=== PATIENT | male | born 1970 | race Caucasian/White ===

== ENCOUNTER 2018-12-07 10:21 | Emergency (ER) | payer SELFPAY ==
[2018-12-07] MEDS ORDERED: NITROGLYCERIN 0.4 MG TAB.SUBL SL PRN (10:39)
[2018-12-07] MEDS ORDERED: ASPIRIN 81 MG CHEW TAB PO ONE (10:39)
--- NOTE | 2018-12-07 10:40 | ED Physician Documentation ---
General Adult - HISTORIAN Historian: patient - HPI Stated Complaint: chest pain, n/v/sob Chief Complaint: General Adult Onset: hours Timing: still present Severity: moderate Further Comments: yes (Pt is a 48 yo male with pain in his chest. He makes and up and down motion over his esophagus when he describes the pain. Pain was 10/10 at it's worst, now is 7/10. Pt has no hx heart dz. Pt does not recall hx GERD.) - ROS CONST: no problems EYES/ENT: none CVS/RESP: chest pain GI/: none MS/SKIN/LYMPH: none - PAST HX Past History: asthma Allergies/Adverse Reactions: Allergies Allergy/AdvReac Type Severity Reaction Status Date / Time ketorolac [From Toradol] Allergy Verified 12/07/18 11:05 morphine Allergy Verified 12/07/18 11:05 Penicillins Allergy Verified 12/07/18 11:05 Home Medications: Ambulatory Orders Medication Instructions Recorded NK 12/07/18 - SOCIAL HX Smoking History: cigarettes - FAMILY HX Family History: No - REVIEWED ASSESSMENTS Nursing Assessment Reviewed: Yes Vitals Reviewed: Yes Progress - Progress Progress: ASA 325 mg po Nitro 0.4 mg no change Dilaudid 1 mg IV Zofran 4 mg IV D dimer wnl GI cocktail Protonix 40 mg IV improved after Protonix May try Pepcid/Zantac or Nexium OTC. - EKG/XRAY/CT EKG: rhythm (sinus tachycardia, PO=824.) XRAY: chest (neg) General Adult Physical Exam - PHYSICAL EXAM GENERAL APPEARANCE: moderate distress (anxious) EENT: eye inspection normal, pharynx normal NECK: normal inspection, supple RESPIRATORY: no resp distress, chest non-tender, breath sounds normal CVS: tachycardia ABDOMEN: soft, no organomegaly, normal bowel sounds BACK: normal inspection, no CVA tenderness SKIN: warm/dry, normal color EXTREMITIES: non-tender, normal range of motion, no evidence of injury NEURO: oriented X3, motor nml, sensation nml Discharge Clincal Impression: probable GERD Referrals: Primary Doctor,No [Primary Care Provider] - Condition: Stable Disposition: 01 HOME, SELF-CARE Decision to Admit: NO Decision Time: 13:25
[2018-12-07] MEDS ORDERED: ASPIRIN 81 MG CHEW TAB ONE (10:43)
[2018-12-07 11:03] LABS: BASOPHILS % 0.5 (0.0-1.5); EOSINOPHILS % 4.7 % (0.0-6.8); MEAN CORPUSCULAR HEMOGLOBIN 31.3 pg (28.0-34.0); MONOCYTES % 7.4 % (0.0-11.0); NEUTROPHILS # 5.8 # k/uL (1.4-7.7)
[2018-12-07] MEDS ORDERED: HYDROmorphone HCL/PF 1 MG/ML VIAL IVP ONE (11:19)
[2018-12-07] MEDS ORDERED: ONDANSETRON HCL/PF 4 MG/ 2ML VIAL IVP ONE (11:19)
[2018-12-07] MEDS ORDERED: HYDROmorphone HCL/PF 2 MG/ML VIAL ONE (11:22)
[2018-12-07 11:47] LABS: eGFR (Non-African) > 60
[2018-12-07] MEDS ORDERED: MAG HYDROX/ALUMINUM HYD/SIMETH 30 ML, Lidocaine 2%Visc 15ml 20 MG, PHENOBARB-HYOSCYAM-A... PO ONE ×3 (12:26)
[2018-12-07] MEDS ORDERED: MAG HYDROX/ALUMINUM HYD/SIMETH 30 ML UDC PO ONE (12:47)
[2018-12-07] MEDS ORDERED: LIDOCAINE HCL 2% VISC. ORAL 300MG/15ML UDC ONE (12:47)
[2018-12-07] MEDS ORDERED: PANTOPRAZOLE SODIUM 40 MG in 0.9 % SODIUM CHLORIDE 50 ML IV ONE (13:00)
[2018-12-07] MEDS ORDERED: PANTOPRAZOLE SODIUM INJ. 40 MG VIAL ONE (13:01)
[2018-12-07 13:26] VITALS: BP 125/94
--- NOTE | 2018-12-07 14:12 | Diagnostic Imaging Report ---
<p>Your browser does not support iframes.</p> BRITT GRANADO [id number] [facility].[address] [address] Report Submission Date: Dec 07, 2018 11:10:43 AM BATTERY CHARGER Patient Study Name: HARDEEP TRIANA Date: Dec 07, 2018 10:45:07 AM BATTERY CHARGER Modality Type: DX Gender: M Description: CHEST 1VIEW : 68 Institution: Physician: BRITT GRANADO Portable chest History: Chest pain Portable chest dated December 07, 2018 demonstrates a normal cardiomediastinal silhouette. Pulmonary vascularity is normal. Lungs are clear. Impression: No active disease. Electronically signed on Dec 07, 2018 11:10:43 AM BATTERY CHARGER by: Lianna VALENZUELA
== END 2018-12-07 13:22 | disposition home or self-care (01) ==
LOC: ED 10:21
DX: R07.9 Chest pain, unspecified (principal)
CPT/HCPCS: 36415; 71045; 80053; 82550; 82553; 83880; 84484; 85025; 85379; 85610; 85730; 93005; 96374; 96375; 99283; 99285; A9270; J1170; J2405; S1016

== ENCOUNTER 2018-12-08 10:24 | Emergency (ER) | payer SELFPAY ==
[2018-12-08] MEDS ORDERED: OLANZapine 5 MG TABLET PO ONE (10:49)
--- NOTE | 2018-12-08 10:51 | ED Physician Documentation ---
Psychological Disorders - HISTORIAN Historian: patient - HPI Stated Complaint: suicidal Chief Complaint: Psychological Disorder Additional Information: Patient presents to ED with a 2 day history of suicidal ideation. Patient sta paxton he was inpatient psych for 2-3 weeks at [facility] in [place]. When he was discharged they sent him to homeless residential here. Patient states he has chronic neck/back pain which has been worse. He states he is unable to afford his medications. The chronic pain and depression is more than he can handle and he has been thinking about killing himself to get out of pain. Onset: days ago (2) Intent: suicide Severity: moderate Situational Problems: Yes (chronic pain, homeless) - Associated Symptoms Symptoms: depressed Suicidal: suicidal thoughts - ROS CONST: none NEURO/PSYCH: anxiety, depression EYES/ENT: none CVS/RESP: denies: chest pain, shortness of breath GI/: denies: nausea, vomiting MS/SKIN/LYMPH: denies: rash - PAST HX Psychiatric problems: depression DVT/PE Risk Factors: none Allergies/Adverse Reactions: Allergies Allergy/AdvReac Type Severity Reaction Status Date / Time ketorolac [From Toradol] Allergy Verified 12/08/18 11:07 morphine Allergy Verified 12/08/18 11:07 Penicillins Allergy Verified 12/08/18 11:07 Home Medications: Ambulatory Orders Medication Instructions Recorded NK 12/07/18 - Social HX Smoking History: non-smoker Marital Status: single Drug Use: none - Family HX Family HX: denies: mental illness - VITAL SIGNS Vital Signs: Vital Signs Temp Pulse Resp BP Pulse Ox 99.2 F 102 H 20 131/98 99 12/08/18 20:15 12/08/18 20:15 12/08/18 20:15 12/08/18 20:15 12/08/18 20:15 - REVIEWED ASSESSMENTS Nursing Assessment Reviewed: Yes Vitals Reviewed: Yes Progress - Results/Orders Results/Orders: UDS - positive for Benzos and oxycodone UA - Negative for infection - Progress Progress: 1106 Patient refusing Zyprexa, stating "it doesnt work, I want Ativan". 1230 Patient becoming agitated wanting dilaudid and ativan. Arguing with foul language with RN. Police called. 1816 Discussed transfer to [facility]. Patient is aware he will not be receiving pain medications or Benzos while inpatient at [facility]. Patient is okay with transfer under these stipulations. [address] Mares, Psychiatrist, [facility]. He agrees to take patient. 1905 Transport arrangements are underway. It may take awhile. - EKG/XRAY/CT EKG: NSR Comments: 97 bpm QT 353 ED Results Lab/Radiology - Lab Results Lab Results: Lab Results 12/08/18 12/08/18 12/08/18 Unknown 11:40 11:40 WBC 8.00 K/ul K/ul (4.00-12.00) RBC 4.75 M/ul M/ul (3.90-5.20) Hgb 14.6 g/dL g/dL (12.0-18.0) Hct 43.5 % % (37.0-53.0) MCV 91.0 fl fl (80.0-100.0) MCH 30.7 pg pg (28.0-34.0) MCHC 33.5 g/dL g/dL (30.0-36.0) RDW 13.2 % % (11.3-14.3) Plt Count 261 K/mm3 K/mm3 (130-400) Neut % (Auto) 60.9 % % (39.0-79.0) Lymph % (Auto) 25.5 % % (16.0-50.0) [place] % (Auto) 7.0 % % (0.0-11.0) Eos % (Auto) 5.9 % % (0.0-6.8) Baso % (Auto) 0.7 (0.0-1.5) Neut # (Auto) 4.9 # k/uL # k/uL (1.4-7.7) Lymph # (Auto) 2.0 # k/uL # k/uL (0.6-4.0) [place] # (Auto) 0.6 # k/uL # k/uL (0.0-0.9) Eos # (Auto) 0.5 # k/uL # k/uL (0.0-0.6) Baso # (Auto) 0.1 # k/uL # k/uL (0.0-0.5) Sodium 141 mmol/L mmol/L (136-145) Potassium 4.0 mmol/L mmol/L (3.5-5.1) Chloride 104 mmol/L mmol/L (98-107) Carbon Dioxide 26 mmol/L mmol/L (22-30) BUN 13 mg/dL mg/dL (9-20) Creatinine 0.87 mg/dL mg/dL (0.66-1.25) Estimated Creat Clear 107 Est GFR ( Amer) > 60 (60 - ) Est GFR (Non-Af Amer) > 60 (60 - ) Glucose 91 mg/dL mg/dL (74-106) Calcium 9.2 mg/dL mg/dL (8.4-10.2) Total Bilirubin 0.3 mg/dL mg/dL (0.2-1.3) AST 38 U/L U/L (15-46) ALT 66 U/L U/L (13-69) Alkaline Phosphatase 93 U/L U/L (38-126) Total Protein 7.4 g/dL g/dL (6.3-8.2) Albumin 4.6 g/dL g/dL (3.5-5.0) Urine Color Urine Appearance Urine pH Ur Specific [place] Urine Protein Urine Ketones Urine Occult Blood Urine Nitrite Urine Bilirubin Urine Urobilinogen Ur Leukocyte Esterase Urine Glucose Opiates Screen Oxycodone Screen Methadone Screen Acetaminophen < 10.0 ug/mL L ug/mL (10-30) Ur Barbiturates Screen Tricyclic Antidepress Phencyclidine Screen Amphetamines Screen U Methamphetamines Scrn MDMA Benzodiazepines Screen Urine Cocaine Screen U Cannabinoids Screen Ethyl Alcohol < 10.0 mg/dL mg/dL (0.0-10.0) 12/08/18 12/08/18 11:15 10:55 WBC RBC Hgb Hct MCV MCH MCHC RDW Plt Count Neut % (Auto) Lymph % (Auto) [place] % (Auto) Eos % (Auto) Baso % (Auto) Neut # (Auto) Lymph # (Auto) [place] # (Auto) Eos # (Auto) Baso # (Auto) Sodium Potassium Chloride Carbon Dioxide BUN Creatinine Estimated Creat Clear Est GFR ( Amer) Est GFR (Non-Af Amer) Glucose Calcium Total Bilirubin AST ALT Alkaline Phosphatase Total Protein Albumin Urine Color Yellow (YELLOW) Urine Appearance Clear (CLEAR) Urine pH 7.0 (5.0 - 8.0) Ur Specific [place] 1.015 (1.010-1.030) Urine Protein Negative mg/dL mg/dL (NEGATIVE) Urine Ketones Negative mg/dL mg/dL (NEGATIVE) Urine Occult Blood Negative (NEGATIVE) Urine Nitrite Negative (NEGATIVE) Urine Bilirubin Negative (NEGATIVE) Urine Urobilinogen 0.2 Eu Eu (0.2-1.0) Ur Leukocyte Esterase Negative (NEGATIVE) Urine Glucose 03 mg/dL mg/dL (NEGATIVE) Opiates Screen Negative ng/mL ng/mL (<300) Oxycodone Screen Non negative ng/mL H ng/mL (<100) Methadone Screen Negative ng/mL ng/mL (<200) Acetaminophen Ur Barbiturates Screen Negative ng.mL ng.mL (<200) Tricyclic Antidepress Negative ng/mL ng/mL (<300) Phencyclidine Screen Negative ng/mL ng/mL (< 25) Amphetamines Screen Negative ng/mL ng/mL (<500) U Methamphetamines Scrn Negative ng/mL ng/mL (<500) MDMA Negative ng/mL ng/mL (<500) Benzodiazepines Screen Non negative ng/mL H ng/mL (<150) Urine Cocaine Screen Negative ng/mL ng/mL (<150) U Cannabinoids Screen Negative ng/mL ng/mL (< 50) Ethyl Alcohol - Orders Orders: ED Orders Category Date Time Status ACETAMINOPHEN LEVEL Routine Lab 12/08/18 11:40 Completed ALCOHOL MEDICAL USE ONLY Stat Lab 12/08/18 Completed BENZODIAZEPINES, QUANT, URINE Routine Lab 12/08/18 10:55 Received CBC/PLATELET/DIFF Routine Lab 12/08/18 11:40 Completed CMP Routine Lab 12/08/18 11:40 Completed DRUG SCREEN URINE MEDICAL ONLY Routine Lab 12/08/18 Ordered DRUG SCREEN URINE MEDICAL ONLY Routine Lab 12/08/18 10:55 Completed OPIATES,QUANT Routine Lab 12/08/18 10:55 Received SALICYLATE LEVEL Stat Lab 12/08/18 11:40 Received THYROID STIMULATING HORMONE Stat Lab 12/08/18 11:40 Received UA MACRO DIP ONLY Routine Lab 12/08/18 11:15 Completed HYDROcodone /APAP 5/325 [[place] 5/325] Med 12/08/18 11:55 Discontinued 1 each PO NOW ONE HYDROcodone /APAP 5/325 [[place] 5/325] Med 12/08/18 16:07 Discontinued 1 each PO NOW ONE HYDROcodone /APAP 5/325 [[place] 5/325] Med 12/08/18 19:48 Discontinued 1 each PO NOW ONE LORazepam [Ativan] Med 12/08/18 12:38 Discontinued 2 mg IM NOW ONE LORazepam [Ativan] Med 12/08/18 19:48 Discontinued 2 mg IM NOW ONE OLANZapine [Zyprexa] Med 12/08/18 10:49 Discontinued 10 mg PO NOW ONE clonazePAM [Klonopin] Med 12/08/18 11:11 Discontinued 1 mg PO NOW ONE EKG WITH COMPARISON Stat Ther 12/08/18 Ordered Psych Physical Exam - Physical Exam General Appearance: no acute distress, alert Eyes: PERRL Mental Status: depressed affect / mood Suicide Attempts: admit, still contemplating Orientation: nml x3 Cranial Nerves: CN's intact as tested Sensory, Motor: nml motor response Neck/Back: normal inspection, supple Respiratory: no resp distress, breath sounds normal CVS: reg rate & rhythm Abdomen: non-tender, nml bowel sounds Skin: warm/dry, normal color Extremities: non-tender, no edema Discharge Clincal Impression: Suicidal ideations Referrals: Primary Doctor,No [Primary Care Provider] - 2 Days Condition: Stable Disposition: 65 XFER TO PSYCH HOSP/UNIT Decision to Admit: NO Date of Decison to Admit: 12/08/18 Decision Time: 19:07
[2018-12-08] MEDS ORDERED: clonazePAM 0.5 MG TABLET PO ONE (11:11)
[2018-12-08] MEDS ORDERED: HYDROcodone /APAP 5/325 1 EACH TABLET PO ONE ×3 (11:55→19:48)
[2018-12-08 12:09] LABS: BASOPHILS % 0.7 (0.0-1.5); EOSINOPHILS % 5.9 % (0.0-6.8); MEAN CORPUSCULAR HEMOGLOBIN 30.7 pg (28.0-34.0); NEUTROPHILS # 4.9 # k/uL (1.4-7.7)
[2018-12-08 12:33] LABS: eGFR (Non-African) > 60
[2018-12-08] MEDS ORDERED: LORazepam 2 MG/ML VIAL IM ONE ×2 (12:38→19:48)
[2018-12-08 14:58] LABS: APPEARANCE,URINE CLEAR (CLEAR); COLOR,URINE YELLOW (YELLOW); OCCULT BLOOD,URINE NEGATIVE (NEGATIVE); UROBILINOGEN URINE 0.2 Eu (0.2-1.0)
[2018-12-08 14:59] LABS: CANNABINOIDS NEGATIVE ng/mL (< 50); METHYLENEDIOXYMETHAMPHETAMINE NEGATIVE ng/mL (<500)
[2018-12-08 20:25] VITALS: BP 131/98
== END 2018-12-08 20:15 ==
LOC: ED 10:24
DX: R45.851 Suicidal ideations (principal); Z59.0 Homelessness; Z79.899 Other long term (current) drug therapy
CPT/HCPCS: 36415; 80053; 80320; 80377; 81002; 84443; 85025; 93005; 96372; 99285; A9270; J2060; G0480; G0481; S1016